=== PATIENT | female | born 1955 | race Caucasian/White ===

== ENCOUNTER 2016-11-29 11:48 | Inpatient (IN) | payer BC ==
[~2016-11-29] VITALS: Ht 175.3 cm; Wt 76.5 kg
[~2016-11-29 11:48] MED LIST: ACIDOPHILU1 Billion; ALIGN PO; AMBIEN 10MG10 M1 PO; AMBIEN 10MG10 MG PO; BETIMOL OU; CALCIUM600 M2 PO; CELEBREX200 MG PO; CELEXA 20MG20 MG/TAB PO; CENTRUM SILVER1 TA1 PO; DARVOCET N 101 UDTAB PO; DILAUDID4 MG PO; FLAX OIL1000 MG PO; FOLIC ACID0.8 MG PO; GLUCOSAMINE & C1 CA1 PO; IRON325 M1 PO; LEVBID0.375 MG PO; LEVSIN0.125 M1 SL; LIPITOR20 MG PO; LUMIGAN 7.5 ML7.5 M1 OP; NATURAL POTASS595 MG PO; OXYCONTIN60 MG PO; PHILLIPS' STOO100 MG PO; TIMOLOL OPHTHALMIC OU; TRIAMTERENE/HCT1 TAB PO; VITAMIN B COMPL1 TA1 PO; VITAMIN C BUFF500 MG PO; VITAMIN D1000 IU PO; XIFAXAN550 MG PO; ZOCOR 40MG40 MG PO; ZOFRAN 4MG T4 MG/TAB PO; maxide PO
[2017-02-28] VITALS (8 sets, daily range): BP systolic 115–134; BP diastolic 68–78; PULSE 63–78
[2017-02-28] MEDS ORDERED: LIPITOR20 MG PO (11:26)
[2017-02-28] MEDS ORDERED: ATIVAN 0.50.5 MG/TAB PO (11:27)
[2017-02-28] MEDS ORDERED: ULTRAM 50MG TAB50 MG PO (11:27)
[2017-03-01 00:19] VITALS: BP 118/60; PULSE 70; TEMP 97.8
[2017-03-01 04:24] VITALS: BP 123/64; PULSE 67; TEMP 97.6
[2017-03-01 06:24] LABS: HEMATOCRIT 32.9 % (37.0-47.0); HEMOGLOBIN 10.8 g/dl (12.5-16.0)
[2017-03-01 07:02] VITALS: BP 117/65; PULSE 69
[2017-03-01 12:10] VITALS: BP 114/58; PULSE 66; TEMP 98.7
[2017-03-01 15:47] VITALS: BP 111/56; PULSE 75
[2017-03-01 20:05] VITALS: BP 122/58; PULSE 73; TEMP 98
[2017-03-02 03:36] VITALS: BP 120/47; PULSE 76; TEMP 97.6
[2017-03-02 07:06] VITALS: BP 127/42; PULSE 71; TEMP 97.5
[2017-03-02 08:12] LABS: HEMATOCRIT 33.6 % (37.0-47.0)
[2017-03-02] MEDS ORDERED: ASPI325T6 PO (09:27)
[2017-03-02] MEDS ORDERED: TYLENOL 500MG500 MG PO (09:38)
[2017-03-02] MEDS ORDERED: ROXICODONE 55 MG/TAB PO (09:39)
[2017-03-02] MEDS ORDERED: NORCO 325 MG-7.1 TAB PO (09:40)
[2017-03-02 11:19] VITALS: BP 119/54; PULSE 69; TEMP 97.8
== END 2017-03-02 14:18 | disposition home or self-care (01) | DRG 470 ==
LOC: JCC 02-28 07:30
PROVIDERS: Orthopaedic Surgery
PROC: 0SRD0J9 Replacement of Left Knee Joint with Synthetic Substitute, Cemented, Open Approach (ICD-10-PCS; principal; 2017-02-28 15:00)
DX: M17.12 Unilateral primary osteoarthritis, left knee (principal); I10 Essential (primary) hypertension; Z87.891 Personal history of nicotine dependence
CPT/HCPCS: A4315; A9284; C1713; C1776; J0690; J1885; J2250; J2270; J2704; J3010; J7120

== ENCOUNTER → 2017-02-21 | Outpatient (CLI) | payer BC ==
[~2017-02-21] MED LIST changes: +ASPI325T6 PO; +ATIVAN 0.50.5 MG/TAB PO; +NORCO 325 MG-7.1 TAB PO; +ROXICODONE 55 MG/TAB PO; +TYLENOL 500MG500 MG PO; +ULTRAM 50MG TAB50 MG PO
[2017-02-21 17:17] LABS: HIV 1/2 Antibodies Non-Reactive; HIV-1p24 Antigen Non-Reactive
== END ==
LOC: COL.LAB 16:18
PROVIDERS: Orthopaedic Surgery
DX: Z96.652 Presence of left artificial knee joint (principal)

== ENCOUNTER → 2017-04-13 | Outpatient (CLI) | payer BC | LOC: MC.RAD 14:58 | DX: Z12.31 Encounter for screening mammogram for malignant neoplasm of breast (principal) ==

== ENCOUNTER → 2017-06-30 | Outpatient (CLI) | payer BC | LOC: BHSO 12:43 | DX: F33.41 Major depressive disorder, recurrent, in partial remission (principal) | CPT/HCPCS: 90791-AI ==

== ENCOUNTER → 2017-09-07 | Outpatient (CLI) | payer BC | LOC: BHSO 07:58 | DX: F33.42 Major depressive disorder, recurrent, in full remission (principal) ==

== ENCOUNTER → 2018-02-08 | Outpatient (CLI) | payer BC | LOC: BHSO 15:59 | DX: F41.1 Generalized anxiety disorder (principal) | CPT/HCPCS: G0463 ==

== ENCOUNTER → 2018-05-03 | Outpatient (CLI) | payer BC | LOC: BHSO 09:42 | DX: F41.1 Generalized anxiety disorder (principal) | CPT/HCPCS: G0463 ==

== ENCOUNTER → 2018-08-09 | Outpatient (CLI) | payer BC | LOC: BHSO 16:04 | DX: F41.1 Generalized anxiety disorder (principal) | CPT/HCPCS: G0463 ==

== ENCOUNTER → 2019-02-27 | Outpatient (CLI) | payer BC | LOC: BHSO 08:53 | DX: F41.1 Generalized anxiety disorder (principal) | CPT/HCPCS: G0463 ==

== ENCOUNTER → 2019-08-26 | Outpatient (CLI) | payer BC | LOC: BHSO 09:02 | DX: F33.42 Major depressive disorder, recurrent, in full remission (principal) | CPT/HCPCS: G0463 ==

== ENCOUNTER → 2019-10-21 | Outpatient (CLI) | payer BC | LOC: MC.RAD 13:45 | DX: Z12.31 Encounter for screening mammogram for malignant neoplasm of breast (principal) ==

== ENCOUNTER → 2020-03-27 | Outpatient (CLI) | payer BC | LOC: BHSO 08:02 | DX: F33.42 Major depressive disorder, recurrent, in full remission (principal) | CPT/HCPCS: G0463 ==

== ENCOUNTER → 2022-07-21 | Outpatient (CLI) | payer MEDICARE, OTHER | LOC: MC.RAD 09:19 | DX: Z12.31 Encounter for screening mammogram for malignant neoplasm of breast (principal) ==